=== PATIENT | female | born 1975 | race Caucasian/White ===

== ENCOUNTER 2020-05-29 07:22 | Emergency (ER) | payer SELFPAY ==
[2020-05-29] MEDS ORDERED: Lidocaine 1% w/Epinephrine 1:100K 20 ML VIAL ONE ×2 (07:40→07:43)
[2020-05-29] MEDS ORDERED: Ketorolac Tromethamine 30 MG/ML VIAL ONE (07:43)
[2020-05-29] MEDS ORDERED: Clindamycin 150 MG CAP ONE (08:10)
== END 2020-05-29 08:50 | disposition home or self-care (01) ==
LOC: ERS 07:22
DX: N76.4 Abscess of vulva (principal)
CPT/HCPCS: 56405; 96372; J1885

== ENCOUNTER 2020-05-30 12:02 | Emergency (ER) | payer SELFPAY ==
[2020-05-30] MEDS ORDERED: Ondansetron ODT 4 MG TAB ONE (13:08)
[2020-05-30] MEDS ORDERED: Ketorolac Tromethamine 30 MG/ML VIAL ONE (13:08)
== END 2020-05-30 13:25 | disposition home or self-care (01) ==
LOC: ERS 12:02
DX: R11.0 Nausea (principal)
CPT/HCPCS: 96372; 99283; J1885; Q0162